=== PATIENT | male | born 1970 | race Caucasian/White ===

== ENCOUNTER → 2024-01-17 06:31 | Day surgery (SDC) | payer OTHER, SELFPAY | LOC: GI 06:31 | PROVIDERS: ATTENDING PHYSICIAN Internal Medicine | DX: Z12.11 Encounter for screening for malignant neoplasm of colon (principal); K57.30 Diverticulosis of large intestine without perforation or abscess without bleeding; D12.3 Benign neoplasm of transverse colon; D12.0 Benign neoplasm of cecum; R12 Heartburn; Z80.0 Family history of malignant neoplasm of digestive organs; K31.7 Polyp of stomach and duodenum; K21.00 Gastro-esophageal reflux disease with esophagitis, without bleeding; K29.50 Unspecified chronic gastritis without bleeding | CPT/HCPCS: 45385; 45380; 43239; 88305; 88342 ==

== ENCOUNTER → 2024-06-06 12:10 | Outpatient (REF) | payer OTHER, SELFPAY | LOC: RAD 12:10 | PROVIDERS: ATTENDING PHYSICIAN Physician Assistant Medical; FAMILY PHYSICIAN Nurse Practitioner Family | DX: M54.16 Radiculopathy, lumbar region (principal) | CPT/HCPCS: 72110 ==

== ENCOUNTER → 2025-03-16 07:27 | Outpatient (REF) | payer OTHER, SELFPAY | LOC: RCS 07:27 | PROVIDERS: ATTENDING PHYSICIAN Nurse Practitioner Family | DX: R01.0 Benign and innocent cardiac murmurs (principal) | CPT/HCPCS: 93306 ==